=== PATIENT | male | born 1980 | race Caucasian/White ===

== ENCOUNTER 2017-06-01 13:55 | Inpatient (IN) | payer OTHER ==
[2017-06-01 14:07] VITALS: BMI 27.8
--- NOTE | 2017-06-01 15:46 | HP ---
COWS - Scale Resting Pulse: 1= [place] 81-100 Sweatin= Chills/Flushing Restless Observation: 1= Difficult to Sit Still Pupil Size: 2= Moderately Dilated Bone or Joint Aches: 1= Mild Discomfort Runny Nose/ Eye Tearin= Nasal Congestion GI Upset > 30mins: 2= Nausea/Diarrhea Tremor Observation: 2= Slight Tremor Visible Yawning Observation: 1= 1-2x During Session Anxiety or Irritability: 2=Irritable/Anxious Goose Flesh Skin: 3=Piloerection COWS Score: 17 CIWA Score - CIWA Score Nausea/Vomitin Muscle Tremors: 3 Anxiety: 4-Mod. Anxious/Guarded Agitation: 3 Paroxysmal Sweats: 3 Orientation: 3-Disoriented Date>2 days Tacttile Disturbances: 1-Very Mild Itch/Numbness Auditory Disturbances: 0-None Visual Disturbances: 0-None Headache: 0-None Present CIWA-Ar Total Score: 20 Admission ROS BHS - HPI Chief Complaint: Withdrawal sx. Allergies/Adverse Reactions: Allergies Allergy/AdvReac Type Severity Reaction Status Date / Time No Known Allergies Allergy Verified 10/06/14 17:34 History of Present Illness: 37 y/o man with a long hx. of heroin & xanax dependence is admitted for detox. Pt. has been in previous detox, reports 6 months drug free. Exam Limitations: No Limitations - Ebola screening Have you traveled outside of the country in the last 21 days: No (N) Have you had contact with anyone from an Ebola affected area: No Have you been sick,other than usual withdrawal symptoms: No Do you have a fever: No - Review of Systems Constitutional: Diaphoresis EENT: reports: No Symptoms Reported Respiratory: reports: No Symptoms reported Cardiac: reports: No Symptoms Reported GI: reports: Nausea, Abdominal cramping : reports: No Symptoms Reported Musculoskeletal: reports: Back Pain, Joint Pain Integumentary: reports: Sweating Neuro: reports: Headache, Numbness, Tremors Endocrine: reports: No Symptoms Reported Hematology: reports: No Symptoms Reported Psychiatric: reports: No Sypmtoms Reported Other Systems: Reviewed and Negative Patient History - Patient Medical History Hx Anemia: No Hx Asthma: No Hx Chronic Obstructive Pulmonary Disease (COPD): No Hx Cancer: No Hx Cardiac Disorders: No Hx Congestive Heart Failure: No Hx Hypertension: No Hx Hypercholesterolemia: No Hx Pacemaker: No HX Cerebrovascular Accident: No Hx Seizures: No Hx Dementia: No Hx Diabetes: No Hx Gastrointestinal Disorders: No Hx Liver Disease: No Hx Genitourinary Disorders: No Hx Sexually Transmitted Disorders: No Hx Renal Disease (ESRD): No Hx Thyroid Disease: No Hx Human Immunodeficiency Virus (HIV): No Hx Hepatitis C: No Hx Depression: Yes Hx Suicide Attempt: No Hx Bipolar Disorder: No Hx Schizophrenia: No - Patient Surgical History Past Surgical History: Yes Hx Neurologic Surgery: No Hx Cataract Extraction: No Hx Cardiac Surgery: No Hx Lung Surgery: No Hx Breast Surgery: No Hx Breast Biopsy: No Hx Abdominal Surgery: No Hx Appendectomy: No Hx Cholecystectomy: No Hx Genitourinary Surgery: No Hx Section: No Hx Orthopedic Surgery: No Other Surgical History: LASIK EYE SURGERY Anesthesia Reaction: No - PPD History Previous Implant?: Yes Documented Results: Negative w/proof Date: 09/10/14 Results: 0 mm PPD to be Administered?: Yes - Smoking Cessation Smoking history: Current every day smoker Have you smoked in the past 12 months: Yes Aproximately how many cigarettes per day: 20 Cigars Per Day: 0 Hx Chewing Tobacco Use: No Initiated information on smoking cessation: Yes 'Breaking Loose' booklet given: 06/01/17 - Substance & Tx. History Hx Alcohol Use: No Hx Substance Use: Yes Substance Use Type: Heroin, Tranquilizers Hx Substance Use Treatment: Yes (Detox & rehab 2014) - Substances Abused Alprazolam (Xanax) Route: Oral Frequency: Daily Amount used: 4-6mg Age of first use: 35 Date of Last Use: 05/31/17 Heroin Route: Injection Frequency: Daily Amount used: 40-50 bags Age of first use: 23 Date of Last Use: 05/31/17 Family Disease History - Family Disease History Family History: Denies Admission Physical Exam BHS - Vital Signs Vital Signs: Vital Signs - 24 hr 06/01/17 13:58 Temperature 96.9 F L Pulse Rate 84 Respiratory 18 Rate Blood Pressure 126/70 - Physical General Appearance: Yes: Tremorous, Irritable, Sweating, Anxious HEENTM: Yes: Nasal Congestion, Rhinorrhea Respiratory: Yes: Chest Non-Tender, Lungs Clear, Normal Breath Sounds Neck: Yes: Supple Breast: Yes: Breast Exam Deferred Cardiology: Yes: Regular Rhythm, Regular Rate, S1, S2 Abdominal: Yes: Normal Bowel Sounds, Non Tender, Soft Genitourinary: Yes: Within Normal Limits Back: Yes: Within Normal Limits Musculoskeletal: Yes: Within Normal Limits Extremities: Yes: Tremors Neurological: Yes: Fully Oriented Integumentary: Yes: Diaphoresis, Track [place] (redness & induration rt. forearm) Lymphatic: Yes: Within Normal Limits - Diagnostic (1) Opioid dependence with withdrawal Current Visit: Yes Status: Acute (2) Sedative, hypnotic or anxiolytic dependence with withdrawal, uncomplicated Current Visit: Yes Status: Acute (3) Cellulitis of right forearm Current Visit: Yes Status: Acute Cleared for Admission S - Detox or Rehab [facility] Level of Care: Medically Managed Detox Regimen/Protocol: Methadone/Valium S Breath Alcohol Content Breath Alcohol Content: 0 Urine Drug Screen - Results Drug Screen Negative: No Urine Drug Screen Results: OPI-Opiates, OXY-Oxycodone
[2017-06-01] MEDS ORDERED: guaiFENesin/D-METHORPHAN HB 10 ML UNIT-DOSE CUPS PO PRN (15:58)
[2017-06-01] MEDS ORDERED: MENTHOL/PHENOL 1 EACH UD MM PRN (15:58)
[2017-06-01] MEDS ORDERED: ACETAMINOPHEN 325 MG TABLET (FP) PO PRN (15:58)
[2017-06-01] MEDS ORDERED: IBUPROFEN 400 MG TABLET (FP) PO PRN (15:58)
[2017-06-01] MEDS ORDERED: diazePAM 5 MG TABLET PO ONE (15:58)
[2017-06-01] MEDS ORDERED: MAG HYDROX/AL HYDROX/SIMETH 30 ML UNIT-DOSE CUP PO PRN (15:58)
[2017-06-01] MEDS ORDERED: LOPERAMIDE HCL 2 MG CAPSULE PO PRN (15:58)
[2017-06-01] MEDS ORDERED: MAGNESIUM CITRATE 300 ML BOTTLE PO PRN (15:58)
[2017-06-01] MEDS ORDERED: P-EPHED 60MG/TRIPROLIDI 2.5MG TABLET PO PRN (15:58)
[2017-06-01] MEDS ORDERED: NICOTINE POLACRILEX 2 MG GUM BC PRN (15:58)
[2017-06-01] MEDS ORDERED: METHADONE HCL 10 MG TABLET (FOR DETOX USE ONLY) PO ONE ×2 (15:58→23:00)
[2017-06-01] MEDS ORDERED: METHADONE HCL 10 MG TABLET (FOR DETOX USE ONLY) ONE (18:46)
[2017-06-01] MEDS: NICOTINE 21 MG/24 HOURS TOPICAL PATCH TD SCH (18:51)
[2017-06-01] MEDS: AMOX TR/POT CLAV 875MG/125MG TABLETS (FP) PO SCH (18:51)
[2017-06-01] MEDS ORDERED: BACITRACIN 0.9 GM PACKET ONE (20:49)
[2017-06-01] MEDS: THIAMINE HCL 100 MG TABLET (FP) PO SCH (22:12)
[2017-06-01] MEDS: diazePAM 5 MG TABLET PO SCH (22:13)
[2017-06-01] MEDS: BACITRACIN 15 GM TUBE TOPICAL OINTMENT TP SCH (22:13)
[2017-06-01] MEDS: hydrOXYzine PAMOATE 50 MG CAPSULE (FP) PO PRN (22:16)
[2017-06-01] MEDS: MAGNESIUM HYDROX 2400MG/30ML ORAL SUSPENSION 30 ML CUP PO PRN (23:30)
[2017-06-01 23:40] LABS: URINE APPEARANCE CLEAR; URINE BILIRUBIN NEGATIVE (NEGATIVE); URINE BLOOD NEGATIVE (NEGATIVE); URINE COLOR YELLOW; URINE GLUCOSE (UA) NEGATIVE (NEGATIVE); URINE KETONE NEGATIVE (NEGATIVE); URINE LEUK ESTERASE NEGATIVE (NEGATIVE); URINE NITRITE NEGATIVE (NEGATIVE); URINE PROTEIN NEGATIVE (NEGATIVE); URINE UROBILINOGEN NEGATIVE mg/dL (0.2-1.0)
[2017-06-02] MEDS: diazePAM 5 MG TABLET PO PRN ×4 (00:02→20:53)
[2017-06-02] MEDS: diazePAM 5 MG TABLET PO SCH ×3 (07:10→21:54)
[2017-06-02] MEDS: AMOX TR/POT CLAV 875MG/125MG TABLETS (FP) PO SCH ×2 (07:10→16:51)
--- NOTE | 2017-06-02 08:51 | EKG ---
Test Reason : Blood Pressure : / mmHG Vent. Rate : 083 BPM Atrial Rate : 083 BPM P-R Int : 128 ms QRS Dur : 098 ms QT Int : 350 ms P-R-T Axes : 056 079 047 degrees QTc Int : 411 ms NORMAL SINUS RHYTHM NORMAL ECG NO PREVIOUS ECGS AVAILABLE Confirmed by Denis Rose ([id number]) on 06/02/2017 8:50:47 AM Referred By: Wu Rubin Confirmed By:Denis Rose
--- NOTE | 2017-06-02 09:19 | CONSULT ---
[facility] Psychiatric Consult - Data Date of interview: 06/02/17 Admission source: [facility] Identifying data: This is 37 years old male with with no psychiatric hospitalization history intoxicated with: Opioids and Xanax Substance Abuse History: - Smoking Cessation. Smoking history: Current every day smoker. Have you smoked in the past 12 months: Yes. Aproximately how many cigarettes per day: 20. Cigars Per Day: 0. Hx Chewing Tobacco Use: No. Initiated information on smoking cessation: Yes. 'Breaking Loose' booklet given : 06/01/17. - Substance & Tx. History. Hx Alcohol Use: No. Hx Substance Use: Yes. Substance Use Type: Heroin, Tranquilizers. Hx Substance Use Treatment: Yes (Detox & rehab 2014). - Substances Abused. Alprazolam (Xanax). Route: Oral. Frequency: Daily. Amount used: 4-6mg. Age of first use: 35. Date of Last Use: 05/31/17. Heroin. Route: Injection. Frequency: Daily. Amount used: 40-50 bags. Age of first use: 23. Date of Last Use: 05/31/17 Medical History: History of Cellulitis Psychiatric History: Patient reports history of depression and anxiety, reports taking prior to admission: Reneron 30mg po qhs. Gabapentin 300mg po tid Physical/Sexual Abuse/Trauma History: Denies Additional Comment: Reneron 30mg po qhs. Gabapentin 300mg po tid Mental Status Exam - Mental Status Exam Alert and Oriented to: Person Cognitive Function: Fair Patient Appearance: Unkempt Mood: Sad Affect: Flat Patient Behavior: Sedated Speech Pattern: Delayed Voice Loudness: Mildly Soft/Quiet Thought Process: Circumstantial Thought Disorder: Being Controlled Hallucinations: Denies Suicidal Ideation: Denies Homicidal Ideation: Denies Insight/Judgement: Fair Sleep: Difficulty falling asleep Appetite: Fair Muscle strength/Tone: Normal Gait/Station: Normal Additional Comments: Reneron 30mg po qhs. Gabapentin 300mg po tid Psychiatric Findings - Problem List ([place] 1, 2,3) (1) Opioid dependence with withdrawal Current Visit: Yes Status: Acute (2) Sedative, hypnotic or anxiolytic dependence with withdrawal, uncomplicated Current Visit: Yes Status: Acute (3) ADHD (attention deficit hyperactivity disorder) Current Visit: No Status: Acute (4) Anxiety and depression Current Visit: No Status: Acute (5) Anxiety disorder Current Visit: No Status: Acute (6) Benzodiazepine dependence Current Visit: No Status: Acute (7) Cocaine dependence Current Visit: No Status: Acute (8) Heroin dependence Current Visit: No Status: Acute (9) Mood disorder Current Visit: No Status: Acute (10) Nicotine dependence Current Visit: No Status: Acute (11) Opioid dependence Current Visit: No Status: Acute - Initial Treatment Plan Initial Treatment Plan: Reneron 30mg po qhs. Gabapentin 300mg po tid
[2017-06-02] MEDS: PRENATAL VITAMINS W/ FOLIC ACID TABLET (FP) PO SCH (09:35)
[2017-06-02] MEDS: NICOTINE 21 MG/24 HOURS TOPICAL PATCH TD SCH (09:36)
[2017-06-02] MEDS: MAGNESIUM HYDROX 2400MG/30ML ORAL SUSPENSION 30 ML CUP PO PRN (09:37)
[2017-06-02] MEDS ORDERED: METHADONE HCL 10 MG TABLET (FOR DETOX USE ONLY) PO SCH (10:00)
[2017-06-02 10:17] LABS: HEMATOCRIT 37.7 % (35.4-49); HEMOGLOBIN 12.3 GM/dL (11.7-16.9); MCH 27.2 pg (25.7-33.7); MCHC 32.7 g/dl (32.0-35.9); MEAN CELL VOLUME 83.3 fl (80-96); MEAN PLT VOLUME 8.4 fl (7.5-11.1); PLATELET COUNT 275 K/MM3 (134-434); RBC 4.52 M/mm3 (4.00-5.60); RDW 13.9 % (11.9-15.9); WHITE BLOOD COUNT 4.9 K/mm3 (4.0-10.0)
[2017-06-02 10:30] LABS: ALBUMIN 3.4 g/dl (3.4-5.0); ANION GAP 7 (8-16); BLOOD UREA NITROGEN 14 mg/dL (7-18); CALCIUM 8.9 mg/dL (8.5-10.1); CHLORIDE 102 mmol/L (98-107); CO2 30 mmol/L (21-32); GLUCOSE,RANDOM 104 mg/dL (74-106); POTASSIUM 4.4 mmol/L (3.5-5.1); SODIUM 139 mmol/L (136-145)
[2017-06-02 10:33] LABS: ALK PHOS 116 U/L (45-117); BILIRUBIN,TOTAL 0.4 mg/dL (0.2-1.0); CREATININE 0.8 mg/dL (0.7-1.3); SGOT/AST 29 U/L (15-37); SGPT/ALT 95 U/L (12-78); TOT PROT 6.9 g/dl (6.4-8.2)
--- NOTE | 2017-06-02 13:32 | PN ---
S CIWA - CIWA Score Nausea/Vomitin Muscle Tremors: 4-Moderate,w/Arms Extend Anxiety: 3 Agitation: 3 Paroxysmal Sweats: 3 Orientation: 0-Oriented Tacttile Disturbances: 0-None Auditory Disturbances: 0-None Visual Disturbances: 0-None Headache: 0-None Present CIWA-Ar Total Score: 15 BHS COWS - Scale Resting Pulse: 0= DC 80 or Below Sweatin=Flushed/Facial Moisture Restless Observation: 3= Extraneous Movement Pupil Size: 0= Normal to Room Light Bone or Joint Aches: 1= Mild Discomfort Runny Nose/ Eye Tearin= Nasal Congestion GI Upset > 30mins: 2= Nausea/Diarrhea Tremor Observation of Outstretched Hands: 2= Slight Tremor Visible Yawning Observation: 1= 1-2x During Session Anxiety or Irritability: 2=Irritable/Anxious Goose Flesh Skin: 0=Smooth Skin COWS Score: 14 S Progress Note (SOAP) Subjective: Tremors, sleep disturbance diarrhea Objective: 06/02/17 13:35 no signs of acute distress Vital Signs Temperature 97.1 F L 06/02/17 09:23 Pulse Rate 80 06/02/17 09:23 Respiratory Rate 16 06/02/17 09:23 Blood Pressure 126/74 06/02/17 09:23 O2 Sat by Pulse Oximetry (%) Laboratory Last Values WBC 4.9 K/mm3 (4.0-10.0) 06/02/17 07:00 RBC 4.52 M/mm3 (4.00-5.60) 06/02/17 07:00 Hgb 12.3 GM/dL (11.7-16.9) 06/02/17 07:00 Hct 37.7 % (35.4-49) 06/02/17 07:00 MCV 83.3 fl (80-96) 06/02/17 07:00 MCH 27.2 pg (25.7-33.7) 06/02/17 07:00 MCHC 32.7 g/dl (32.0-35.9) 06/02/17 07:00 RDW 13.9 % (11.9-15.9) 06/02/17 07:00 Plt Count 275 K/MM3 (134-434) 06/02/17 07:00 MPV 8.4 fl (7.5-11.1) 06/02/17 07:00 Sodium 139 mmol/L (136-145) 06/02/17 07:00 Potassium 4.4 mmol/L (3.5-5.1) 06/02/17 07:00 Chloride 102 mmol/L (98-107) 06/02/17 07:00 Carbon Dioxide 30 mmol/L (21-32) 06/02/17 07:00 Anion Gap 7 (8-16) L 06/02/17 07:00 BUN 14 mg/dL (7-18) 06/02/17 07:00 Creatinine 0.8 mg/dL (0.7-1.3) D 06/02/17 07:00 Creat Clearance w eGFR > 60 (>60) 06/02/17 07:00 Random Glucose 104 mg/dL (74-106) 06/02/17 07:00 Calcium 8.9 mg/dL (8.5-10.1) 06/02/17 07:00 Total Bilirubin 0.4 mg/dL (0.2-1.0) 06/02/17 07:00 AST 29 U/L (15-37) D 06/02/17 07:00 ALT 95 U/L (12-78) H D 06/02/17 07:00 Alkaline Phosphatase 116 U/L (45-117) D 06/02/17 07:00 Total Protein 6.9 g/dl (6.4-8.2) 06/02/17 07:00 Albumin 3.4 g/dl (3.4-5.0) D 06/02/17 07:00 Urine Color Yellow 06/01/17 23:20 Urine Appearance Clear 06/01/17 23:20 Urine pH 6.0 (5.0-8.0) 06/01/17 23:20 Ur Specific [place] 1.020 (1.001-1.035) 06/01/17 23:20 Urine Protein Negative (NEGATIVE) 06/01/17 23:20 Urine Glucose (UA) Negative (NEGATIVE) 06/01/17 23:20 Urine Ketones Negative (NEGATIVE) 06/01/17 23:20 Urine Blood Negative (NEGATIVE) 06/01/17 23:20 Urine Nitrite Negative (NEGATIVE) 06/01/17 23:20 Urine Bilirubin Negative (NEGATIVE) 06/01/17 23:20 Urine Urobilinogen Negative mg/dL (0.2-1.0) 06/01/17 23:20 Ur Leukocyte Esterase Negative (NEGATIVE) 06/01/17 23:20 RPR Titer Nonreactive (NONREACTIVE) 06/02/17 07:00 HIV 1&2 Antibody Screen Negative 06/02/17 07:00 HIV P24 Antigen Negative 06/02/17 07:00 labs noted Assessment: 06/02/17 13:36 withdrawal sx Plan: continue detox
[2017-06-02] MEDS: GABAPENTIN 300 MG CAPSULE (FP) PO SCH ×2 (13:42→21:54)
[2017-06-02] MEDS: BACITRACIN 15 GM TUBE TOPICAL OINTMENT TP SCH ×2 (13:47→21:55)
[2017-06-02] MEDS: hydrOXYzine PAMOATE 50 MG CAPSULE (FP) PO PRN (20:52)
[2017-06-02] MEDS ORDERED: cloNIDine HCL 0.1 MG TABLET PO ONE (21:45)
[2017-06-02] MEDS ORDERED: METHOCARBAMOL 500 MG TABLET PO ONE (21:45)
[2017-06-02] MEDS: THIAMINE HCL 100 MG TABLET (FP) PO SCH (21:54)
[2017-06-02] MEDS ORDERED: MIRTAZAPINE 30 MG TABLET (FP) PO SCH (22:00)
[2017-06-03] MEDS: diazePAM 5 MG TABLET PO PRN ×4 (00:33→17:27)
[2017-06-03] MEDS: hydrOXYzine PAMOATE 50 MG CAPSULE (FP) PO PRN ×3 (03:23→17:27)
[2017-06-03] MEDS: GABAPENTIN 300 MG CAPSULE (FP) PO SCH ×2 (05:20→13:28)
[2017-06-03] MEDS: AMOX TR/POT CLAV 875MG/125MG TABLETS (FP) PO SCH ×2 (08:25→17:27)
[2017-06-03] MEDS: PRENATAL VITAMINS W/ FOLIC ACID TABLET (FP) PO SCH (11:11)
[2017-06-03] MEDS: diazePAM 5 MG TABLET PO SCH ×2 (11:11→11:26)
[2017-06-03] MEDS: BACITRACIN 15 GM TUBE TOPICAL OINTMENT TP SCH (11:11)
[2017-06-03] MEDS: NICOTINE 21 MG/24 HOURS TOPICAL PATCH TD SCH ×2 (11:11→12:30)
[2017-06-03] MEDS: METHADONE HCL 5 MG TABLET (FOR DETOX USE ONLY) PO SCH ×2 (11:11→11:26)
--- NOTE | 2017-06-03 13:37 | PN ---
BHS COWS - Scale Resting Pulse: 0= HI 80 or Below Sweatin= Chills/Flushing Restless Observation: 3= Extraneous Movement Pupil Size: 2= Moderately Dilated Bone or Joint Aches: 1= Mild Discomfort Runny Nose/ Eye Tearin= Runny Nose/Eyes GI Upset > 30mins: 1= Stomach Cramp Tremor Observation of Outstretched Hands: 2= Slight Tremor Visible Yawning Observation: 0= None Anxiety or Irritability: 4=Extreme Anxiety Goose Flesh Skin: 0=Smooth Skin COWS Score: 16 S Progress Note (SOAP) Objective: 06/03/17 13:36 Laboratory Tests 06/01/17 06/02/17 06/02/17 23:20 07:00 07:00 WBC 4.9 RBC 4.52 Hgb 12.3 Hct 37.7 MCV 83.3 MCH 27.2 MCHC 32.7 RDW 13.9 Plt Count 275 MPV 8.4 Sodium 139 Potassium 4.4 Chloride 102 Carbon Dioxide 30 Anion Gap 7 L BUN 14 Creatinine 0.8 D Creat Clearance w eGFR > 60 Random Glucose 104 Calcium 8.9 Total Bilirubin 0.4 AST 29 D ALT 95 H D Alkaline Phosphatase 116 D Total Protein 6.9 Albumin 3.4 D Urine Color Yellow Urine Appearance Clear Urine pH 6.0 Ur Specific [place] 1.020 Urine Protein Negative Urine Glucose (UA) Negative Urine Ketones Negative Urine Blood Negative Urine Nitrite Negative Urine Bilirubin Negative Urine Urobilinogen Negative Ur Leukocyte Esterase Negative RPR Titer HIV 1&2 Antibody Screen HIV P24 Antigen 06/02/17 06/02/17 07:00 07:00 WBC RBC Hgb Hct MCV MCH MCHC RDW Plt Count MPV Sodium Potassium Chloride Carbon Dioxide Anion Gap BUN Creatinine Creat Clearance w eGFR Random Glucose Calcium Total Bilirubin AST ALT Alkaline Phosphatase Total Protein Albumin Urine Color Urine Appearance Urine pH Ur Specific [place] Urine Protein Urine Glucose (UA) Urine Ketones Urine Blood Urine Nitrite Urine Bilirubin Urine Urobilinogen Ur Leukocyte Esterase RPR Titer Nonreactive HIV 1&2 Antibody Screen Negative HIV P24 Antigen Negative Vital Signs - 24 hr 06/02/17 06/02/17 06/02/17 14:38 18:32 23:06 Temperature 97.7 F 98.2 F 98.2 F Pulse Rate 84 81 83 Respiratory 18 18 20 Rate Blood Pressure 120/79 115/65 134/70 06/03/17 06:00 Temperature 97.2 F L Pulse Rate 76 Respiratory 18 Rate Blood Pressure 109/63 Assessment: 06/03/17 13:37 severe withdrawal Plan: cont DETOX PROTOCOL PSYCH CS FOR ANXIETY
[2017-06-03 17:59] VITALS: BP 135/68; PULSE 76; TEMP 98.2
--- NOTE | 2017-06-03 21:23 | DS ---
[facility] Detox Discharge Summary Admission Date: 06/01/17 Discharge Date: 06/03/17 - History Present History: Opioid Dependence, Sedative Dependence Additional Comments: patient insists to leave the detox unit refuses to wait face to face with the provider - Physical Exam Results Vital Signs: Vital Signs Temperature 98.2 F 06/03/17 17:59 Pulse Rate 76 06/03/17 17:59 Respiratory Rate 18 06/03/17 17:59 Blood Pressure 135/68 06/03/17 17:59 O2 Sat by Pulse Oximetry (%) Pertinent Admission Physical Exam Findings: withdrawal sx Vital Signs Temperature 98.2 F 06/03/17 17:59 Pulse Rate 76 06/03/17 17:59 Respiratory Rate 18 06/03/17 17:59 Blood Pressure 135/68 06/03/17 17:59 O2 Sat by Pulse Oximetry (%) Laboratory Last Values WBC 4.9 K/mm3 (4.0-10.0) 06/02/17 07:00 RBC 4.52 M/mm3 (4.00-5.60) 06/02/17 07:00 Hgb 12.3 GM/dL (11.7-16.9) 06/02/17 07:00 Hct 37.7 % (35.4-49) 06/02/17 07:00 MCV 83.3 fl (80-96) 06/02/17 07:00 MCH 27.2 pg (25.7-33.7) 06/02/17 07:00 MCHC 32.7 g/dl (32.0-35.9) 06/02/17 07:00 RDW 13.9 % (11.9-15.9) 06/02/17 07:00 Plt Count 275 K/MM3 (134-434) 06/02/17 07:00 MPV 8.4 fl (7.5-11.1) 06/02/17 07:00 Sodium 139 mmol/L (136-145) 06/02/17 07:00 Potassium 4.4 mmol/L (3.5-5.1) 06/02/17 07:00 Chloride 102 mmol/L (98-107) 06/02/17 07:00 Carbon Dioxide 30 mmol/L (21-32) 06/02/17 07:00 Anion Gap 7 (8-16) L 06/02/17 07:00 BUN 14 mg/dL (7-18) 06/02/17 07:00 Creatinine 0.8 mg/dL (0.7-1.3) D 06/02/17 07:00 Creat Clearance w eGFR > 60 (>60) 06/02/17 07:00 Random Glucose 104 mg/dL (74-106) 06/02/17 07:00 Calcium 8.9 mg/dL (8.5-10.1) 06/02/17 07:00 Total Bilirubin 0.4 mg/dL (0.2-1.0) 06/02/17 07:00 AST 29 U/L (15-37) D 06/02/17 07:00 ALT 95 U/L (12-78) H D 06/02/17 07:00 Alkaline Phosphatase 116 U/L (45-117) D 06/02/17 07:00 Total Protein 6.9 g/dl (6.4-8.2) 06/02/17 07:00 Albumin 3.4 g/dl (3.4-5.0) D 06/02/17 07:00 Urine Color Yellow 06/01/17 23:20 Urine Appearance Clear 06/01/17 23:20 Urine pH 6.0 (5.0-8.0) 06/01/17 23:20 Ur Specific [place] 1.020 (1.001-1.035) 06/01/17 23:20 Urine Protein Negative (NEGATIVE) 06/01/17 23:20 Urine Glucose (UA) Negative (NEGATIVE) 06/01/17 23:20 Urine Ketones Negative (NEGATIVE) 06/01/17 23:20 Urine Blood Negative (NEGATIVE) 06/01/17 23:20 Urine Nitrite Negative (NEGATIVE) 06/01/17 23:20 Urine Bilirubin Negative (NEGATIVE) 06/01/17 23:20 Urine Urobilinogen Negative mg/dL (0.2-1.0) 06/01/17 23:20 Ur Leukocyte Esterase Negative (NEGATIVE) 06/01/17 23:20 RPR Titer Nonreactive (NONREACTIVE) 06/02/17 07:00 HIV 1&2 Antibody Screen Negative 06/02/17 07:00 HIV P24 Antigen Negative 06/02/17 07:00 lab noted - Treatment Hospital Course: Detox Protocol Followed, Responded well - Medication Discharge Medications: Ambulatory Orders Amphet Asp/Amphet/D-Amphet [Adderall 20 mg Tablet] 20 mg PO DAILY 10/06/14 Gabapentin [Neurontin -] 300 mg PO TID #90 capsule 06/02/17 Mirtazapine [Remeron -] 30 mg PO HS #30 tablet 06/02/17 - Diagnosis (1) Opioid dependence with withdrawal Current Visit: Yes Status: Acute (2) Sedative, hypnotic or anxiolytic dependence with withdrawal, uncomplicated Current Visit: Yes Status: Acute - AMA Did Patient Leave Against Medical Advice: Yes
[2017-06-05] MEDS ORDERED: diazePAM 5 MG TABLET PO SCH (10:00)
[2017-06-05] MEDS ORDERED: METHADONE HCL 10 MG TABLET (FOR DETOX USE ONLY) PO SCH (10:00)
[2017-06-06] MEDS ORDERED: METHADONE HCL 5 MG TABLET (FOR DETOX USE ONLY) PO SCH (06:00)
== END 2017-06-03 20:25 | disposition left against medical advice (07) | DRG 770 ==
LOC: YASAS 13:55 → Y6N 16:53
PROVIDERS: ADMIT Internal Medicine; ATTEND Internal Medicine
PROC: HZ2ZZZZ Detoxification Services for Substance Abuse Treatment (ICD-10-PCS; principal; 2017-06-01)
DX: F11.23 Opioid dependence with withdrawal (principal); F13.230 Sedative, hypnotic or anxiolytic dependence with withdrawal, uncomplicated; F17.210 Nicotine dependence, cigarettes, uncomplicated; F90.9 Attention-deficit hyperactivity disorder, unspecified type; F41.8 Other specified anxiety disorders; F41.9 Anxiety disorder, unspecified; F39 Unspecified mood [affective] disorder; L03.113 Cellulitis of right upper limb
CPT/HCPCS: 36415; 80053; 81003; 85027; 86593; 87389; 93005; 93010; J0735

== ENCOUNTER 2019-06-02 15:50 | Inpatient (IN) | payer OTHER ==
[2019-06-02 16:49] VITALS: BMI 25.1
--- NOTE | 2019-06-02 18:32 | HP ---
CIWA Score Nausea/Vomitin (vomiting x 1) Muscle Tremors: 4-Moderate,w/Arms Extend Anxiety: 3 Agitation: 4-Moderately Restless Paroxysmal Sweats: 2 Orientation: 0-Oriented Tacttile Disturbances: 0-None Auditory Disturbances: 0-None Visual Disturbances: 0-None Headache: 2-Mild CIWA-Ar Total Score: 17 - Admission Criteria OASAS Guidelines: Admission for Medically Managed Detox: Requires at least one of the followin. CIWA greater than 12 2. Seizures within the past 24 hours 3. Delirium tremens within the past 24 hours 4. Hallucinations within the past 24 hours 5. Acute intervention needed for co occurring medical disorder 6. Acute intervention needed for co occurring psychiatric disorder 7. Severe withdrawal that cannot be handled at a lower level of care (continued vomiting, continued diarrhea, abnormal vital signs) requiring intravenous medication and/or fluids 8. Admitting History and Physical - Smoking History Smoking history: Current every day smoker Have you smoked in the past 12 months: Yes Aproximately how many cigarettes per day: 20 - Alcohol/Substance Use Hx Alcohol Use: No Admission ROS [facility] Chief Complaint: Benzodiazepine withdrawal symptoms Allergies/Adverse Reactions: Allergies Allergy/AdvReac Type Severity Reaction Status Date / Time No Known Allergies Allergy Verified 06/02/19 16:25 History of Present Illness: 39 years old male with 16 years of benzo. dependence is seeking admission to detox. Patient's last detox was for the period 06/01/2017 - 06/03/2017. He reports insignificant period of sobriety. He reports medical history of shingles and Psych. history of ADHD, Anxiety and Insomnia. He denies suicidal ideation, seizures or blackouts. Patient is on Buprenorphine - naloxone 8-2mg sl film daily. Confidential Drug Utilization Report Search Terms: ar bui, 1980 Search Date: 06/02/2019 06:25:14 PM The Drug Utilization Report below displays all of the controlled substance prescriptions, if any, that your patient has filled in the last twelve months. The information displayed on this report is compiled from pharmacy submissions to the Department, and accurately reflects the information as submitted by the pharmacies. You have not added a RYNE number. Keeping your RYNE number(s) up to date on the My RYNE Numbers page will enable the separation of your prescriptions from others ' in the search results. Others' Prescriptions Patient Name: Ar Bui Date: 1980 Address: [address] [place] [address] Sex: Male Rx Written Rx Dispensed Drug Quantity Days Supply Prescriber Name 05/16/2019 05/26/2019 dextroamp-amphetamin 10 mg tab 60 30 Bebo Alvarez MD 05/16/2019 05/20/2019 buprenorphine-naloxone 8-2 mg sl film 15 14 Bebo Alvarez MD 05/16/2019 05/18/2019 zolpidem tartrate 5 mg tablet 14 14 Bebo Alvarez MD 04/27/2019 05/06/2019 buprenorphine-naloxone 8-2 mg sl film 15 14 Bebo Alvarez MD 04/04/2019 04/27/2019 dextroamp-amphetamin 10 mg tab 60 30 Bebo Alvarez MD 04/18/2019 04/25/2019 zolpidem tartrate 5 mg tablet 14 14 Bebo Alvarez MD 04/18/2019 04/20/2019 buprenorphine-naloxone 8-2 mg sl film 15 14 Bebo Alvarez MD 04/11/2019 04/14/2019 buprenorphine-naloxone 8-2 mg sl film 7 7 Bebo Alvarez MD 04/04/2019 04/11/2019 zolpidem tartrate 5 mg tablet 14 14 Bebo Alvarez MD 04/04/2019 04/07/2019 buprenorphine-naloxone 8-2 mg sl film 7 7 Bebo Alvarez MD 03/28/2019 03/31/2019 buprenorphine-naloxone 8-2 mg sl film 7 7 Bebo Alvarez MD 03/28/2019 03/29/2019 dextroamp-amphetamin 10 mg tab 60 30 Bebo Alvarez MD 03/28/2019 03/29/2019 zolpidem tartrate 5 mg tablet 14 14 Bebo Alvarez MD 03/16/2019 03/17/2019 buprenorphine-naloxone 8-2 mg sl film 14 14 Bebo Alvarez MD 03/14/2019 03/15/2019 zolpidem tartrate 5 mg tablet 14 14 Bebo Alvarez MD 02/28/2019 03/02/2019 dextroamp-amphetamin 10 mg tab 60 30 Bebo Alvarez MD 02/28/2019 02/28/2019 buprenorphine-naloxone 8-2 mg sl film 14 14 Bebo Alvarez MD 02/28/2019 02/28/2019 zolpidem tartrate 5 mg tablet 14 14 Bebo Alvarez MD 02/14/2019 02/14/2019 zolpidem tartrate 5 mg tablet 14 14 Bebo Alvarez MD 02/14/2019 02/14/2019 buprenorphine-naloxone 8-2 mg sl film 14 14 Bebo Alvarez MD 01/31/2019 02/01/2019 dextroamp-amphetamin 10 mg tab 60 30 Bebo Alvarez MD 01/31/2019 01/31/2019 buprenorphine-naloxone 8-2 mg sl film 14 14 Bebo Alvarez MD 01/31/2019 01/31/2019 zolpidem tartrate 5 mg tablet 14 14 Bebo Alvarez MD 01/18/2019 01/18/2019 zolpidem tartrate 5 mg tablet 14 14 Bebo Alvarez MD 01/18/2019 01/18/2019 buprenorphine-naloxone 8-2 mg sl film 14 14 Bebo Alvarez MD 01/08/2019 01/10/2019 buprenorphine-naloxone 8-2 mg sl film 3 3 Bebo Alvarez MD 01/08/2019 01/08/2019 buprenorphine-naloxone 8-2 mg sl film 1 1 Bebo Alvarez MD 12/27/2018 01/05/2019 dextroamp-amphetamin 10 mg tab 60 30 Bebo Alvarez MD 12/27/2018 12/27/2018 buprenorphine-naloxone 8-2 mg sl film 15 15 Bebo Alvarez MD 12/27/2018 12/27/2018 zolpidem tartrate 5 mg tablet 14 14 Bebo Alvarez MD 12/13/2018 12/14/2018 zolpidem tartrate 5 mg tablet 14 14 Bebo Alvarez MD 12/13/2018 12/13/2018 buprenorphine-naloxone 8-2 mg sl film 15 15 Bebo Alvarez MD 12/06/2018 12/07/2018 buprenorphine-naloxone 8-2 mg sl film 7 7 Bebo Alvarez MD 12/06/2018 12/07/2018 zolpidem tartrate 5 mg tablet 10 10 Bebo Alvarez MD 12/06/2018 12/07/2018 dextroamp-amphetamin 10 mg tab 60 30 Bebo Alvarez MD 10/27/2018 11/03/2018 methylphenidate 10 mg tablet 60 30 Bebo Alvarez MD 10/30/2018 10/31/2018 dextroamp-amphetamin 20 mg tab 30 30 Bebo Alvarez MD 10/27/2018 10/28/2018 zolpidem tartrate 5 mg tablet 10 10 Bebo Alvarez MD 10/27/2018 10/27/2018 buprenorphine-naloxone 8-2 mg sl film 7 7 Bebo Alvarez MD 10/11/2018 10/11/2018 buprenorphine-naloxone 8-2 mg sl film 16 16 Bebo Alvarez MD 10/11/2018 10/11/2018 zolpidem tartrate 5 mg tablet 10 10 Bebo Alvarez MD 09/27/2018 10/05/2018 methylphenidate 10 mg tablet 60 30 Bebo Alvarez MD 09/27/2018 09/27/2018 buprenorphine-naloxone 8-2 mg sl film 14 14 Bebo Alvarez MD 09/27/2018 09/27/2018 zolpidem tartrate 5 mg tablet 10 10 Bebo Alvarez MD 09/06/2018 09/06/2018 methylphenidate 10 mg tablet 60 30 Bebo Alvarez MD 09/06/2018 09/06/2018 buprenorphine-naloxone 8-2 mg sl film 14 14 Bebo Alvarez MD 09/06/2018 09/06/2018 zolpidem tartrate 5 mg tablet 10 10 Bebo Alvarez MD 08/18/2018 08/18/2018 buprenorphine-naloxone 8-2 mg sl film 14 14 Bebo Alvarez MD 08/18/2018 08/18/2018 zolpidem tartrate 5 mg tablet 5 5 Bebo Alvarez MD 07/30/2018 08/10/2018 dextroamp-amphetamin 20 mg tab 30 30 Bebo Alvarez MD 08/05/2018 08/05/2018 buprenorphine-naloxone 8-2 mg sl tablet 14 14 Bebo Alvarez MD 08/05/2018 08/05/2018 zolpidem tartrate 5 mg tablet 10 10 Bebo Alvarez MD 07/30/2018 08/01/2018 dextroamp-amphetamin 10 mg tab 60 30 Bebo Alvarez MD 07/30/2018 07/30/2018 buprenorphine-naloxone 8-2 mg sl tablet 2 2 Bebo Alvarez MD 07/19/2018 07/19/2018 zolpidem tartrate 5 mg tablet 10 10 Bebo Alvarez MD 07/19/2018 07/19/2018 buprenorphine-naloxone 8-2 mg sl film 14 14 Bebo Alvarez MD 07/05/2018 07/11/2018 dextroamp-amphetamin 20 mg tab 30 30 Bebo Alvarez MD 07/05/2018 07/06/2018 suboxone 8 mg-2 mg sl film 1 1 Bebo Alvarez MD 07/06/2018 07/06/2018 buprenorphine-naloxone 8-2 mg sl film 14 14 Bebo Alvarez MD 07/05/2018 07/05/2018 zolpidem tartrate 5 mg tablet 10 10 Bebo Alvarez MD 06/21/2018 06/21/2018 suboxone 8 mg-2 mg sl film 14 14 Bebo Alvarez MD 06/21/2018 06/21/2018 zolpidem tartrate 5 mg tablet 10 10 Bebo Alvarez MD 06/07/2018 06/13/2018 dextroamp-amphetamin 20 mg tab 30 30 Bebo Alvarez MD 06/07/2018 06/07/2018 suboxone 8 mg-2 mg sl film 14 14 Bebo Alvarez MD 06/07/2018 06/07/2018 zolpidem tartrate 5 mg tablet 10 10 Bebo Alvarez MD * - Drugs marked with an asterisk are compound drugs. If the compound drug is made up of more than one controlled substance, then each controlled substance will be a separate row in the table. Exam Limitations: No Limitations - Ebola screening Have you traveled outside of the country in the last 21 days: No Have you had contact with anyone from an Ebola affected area: No - Review of Systems Constitutional: Chills, Malaise, Night Sweats EENT: reports: No Symptoms Reported Respiratory: reports: No Symptoms reported Cardiac: reports: No Symptoms Reported GI: reports: Nausea, Poor Appetite, Poor Fluid Intake, Vomiting, Abdominal cramping : reports: No Symptoms Reported Musculoskeletal: reports: Joint Pain Integumentary: reports: Dryness, Flushing, Other (resytless leg syndrome) Neuro: reports: Tremors Endocrine: reports: No Symptoms Reported Hematology: reports: No Symptoms Reported Psychiatric: reports: Mood/Affect Appropiate, Anxious Other Systems: Reviewed and Negative Patient History - Patient Medical History Hx Anemia: No Hx Asthma: No Hx Chronic Obstructive Pulmonary Disease (COPD): No Hx Cancer: No Hx Cardiac Disorders: No Hx Congestive Heart Failure: No Hx Hypertension: No Hx Hypercholesterolemia: No Hx Pacemaker: No HX Cerebrovascular Accident: No Hx Seizures: No Hx Dementia: No Hx Diabetes: No Hx Gastrointestinal Disorders: No Hx Liver Disease: No Hx Genitourinary Disorders: No Hx Sexually Transmitted Disorders: No Hx Renal Disease (ESRD): No Hx Thyroid Disease: No Hx Human Immunodeficiency Virus (HIV): No (Negative 2019) Hx Hepatitis C: No Hx Depression: No Hx Suicide Attempt: No (Denies suicidal ideation at this time) Hx Bipolar Disorder: No Hx Schizophrenia: No - Patient Surgical History Past Surgical History: Yes Hx Neurologic Surgery: No Hx Cataract Extraction: No Hx Cardiac Surgery: No Hx Lung Surgery: No Hx Breast Surgery: No Hx Breast Biopsy: No Hx Abdominal Surgery: No Hx Appendectomy: No Hx Cholecystectomy: No Hx Genitourinary Surgery: No Hx Section: No Hx Orthopedic Surgery: No Other Surgical History: LASIK EYE SURGERY Anesthesia Reaction: No - PPD History Previous Implant?: Yes Documented Results: Negative w/proof Implanted On Prior [facility] Admission?: Yes Date: 06/03/17 Results: 0 mm PPD to be Administered?: Yes - Reproductive History Patient is a Female of Child Bearing Age (11 -55 yrs old): No (male) - Smoking Cessation Smoking history: Current every day smoker Have you smoked in the past 12 months: Yes Aproximately how many cigarettes per day: 20 Cigars Per Day: 0 Hx Chewing Tobacco Use: No Initiated information on smoking cessation: Yes 'Breaking Loose' booklet given: 06/02/19 - Substance & Tx. History Hx Alcohol Use: Yes Hx Substance Use: Yes Substance Use Type: Alcohol, Marijuana, Prescribed Hx Substance Use Treatment: Yes ([facility]) - Substances abused Alprazolam (Xanax) Substance route: Oral Frequency: Daily Amount used: 6 to 8 mg Age of first use: 23 Date of last use: 06/01/19 Benzodiazepine (Klonopin) Substance route: Oral Frequency: Daily Amount used: 2 to 4 mg Age of first use: 23 Date of last use: 05/27/19 Alcohol Substance route: Oral Frequency: 1-2 times per week Amount used: fifth of vodka Age of first use: 30 Date of last use: 06/01/19 Admission Physical Exam [facility] - Vital Signs Vital Signs: Vital Signs - 24 hr 06/02/19 16:39 Temperature 97.6 F Pulse Rate 82 Respiratory 20 Rate Blood Pressure 130/74 - Physical General Appearance: Yes: Moderate Distress, Tremorous, Anxious HEENTM: Yes: Within Normal Limits Respiratory: Yes: Lungs Clear, Normal Breath Sounds, No Respiratory Distress Neck: Yes: Within Normal Limits Breast: Yes: Breast Exam Deferred Cardiology: Yes: Regular Rhythm, Regular Rate Abdominal: Yes: Normal Bowel Sounds, Soft Genitourinary: Yes: Within Normal Limits Back: Yes: Normal Inspection Musculoskeletal: Yes: Within Normal Limits Extremities: Yes: Tremors Neurological: Yes: Alert, Normal Mood/Affect Integumentary: Yes: Pale Lymphatic: Yes: Within Normal Limits - Diagnostic (1) Alcohol dependence Current Visit: Yes Status: Chronic Qualifiers: Complication of substance-induced condition: uncomplicated (2) Anxiety and depression Current Visit: Yes Status: Chronic (3) Nicotine dependence Current Visit: Yes Status: Acute Qualifiers: Nicotine product type: cigarettes Substance use status: in withdrawal Qualified Code(s): F17.213 - Nicotine dependence, cigarettes, with withdrawal (4) Sedative, hypnotic or anxiolytic dependence with withdrawal, uncomplicated Current Visit: Yes Status: Acute (5) Shingles Current Visit: Yes Status: Resolved Cleared for Admission [facility] - Detox or Rehab [facility] Level of Care: Medically Managed Detox Regimen/Protocol: Valium Claeared for Rehab Admission: No Breathalyzer - Breathalyzer Breathalyzer: 0 Urine Drug Screen - Test Device Lot number: [id number] Expiration date: 12/09/20 - Control Is test valid?: Yes - Results Drug screen NEGATIVE: No Urine drug screen results: THC-Marijuana, AMP-Amphetamines, BZO-Benzodiazepines , BUP-Suboxone Inpatient Rehab Admission - Rehab Decision to Admit Inpatient rehab admission?: No
[2019-06-02] MEDS ORDERED: IBUPROFEN 400 MG TABLET (FP) PO PRN (18:53)
[2019-06-02] MEDS ORDERED: MELATONIN 5 MG TABLETS PO PRN (18:53)
[2019-06-02] MEDS ORDERED: MAG HYDROX/AL HYDROX/SIMETH 30 ML UNIT-DOSE CUP PO PRN (18:53)
[2019-06-02] MEDS ORDERED: ACETAMINOPHEN 325 MG TABLET (FP) PO PRN ×2 (18:53)
[2019-06-02] MEDS ORDERED: hydrOXYzine PAMOATE 25 MG CAPSULE (FP) PO PRN (18:53)
[2019-06-02] MEDS ORDERED: MAGNESIUM CITRATE 300 ML BOTTLE PO PRN (18:53)
[2019-06-02] MEDS ORDERED: BISMUTH SUBSALICYLATE 524 MG/30 ML UD PO PRN (18:53)
[2019-06-02] MEDS ORDERED: NICOTINE POLACRILEX 2 MG GUM BUC PRN (18:53)
[2019-06-02] MEDS ORDERED: METHOCARBAMOL 500 MG TABLET PO PRN (18:53)
[2019-06-02] MEDS ORDERED: MENTHOL/PHENOL 1 EACH UD MM PRN (18:53)
[2019-06-02] MEDS: diazePAM 5 MG TABLET PO PRN (20:07)
[2019-06-02] MEDS: THIAMINE HCL 100 MG TABLET (FP) PO SCH (22:08)
[2019-06-02] MEDS: diazePAM 5 MG TABLET PO SCH (22:08)
[2019-06-03] MEDS: diazePAM 5 MG TABLET PO SCH ×3 (06:37→22:06)
--- NOTE | 2019-06-03 09:20 | PN ---
[facility] CIWA - CIWA Score Nausea/Vomitin-Mild Nausea/No Vomiting Muscle Tremors: 3
--- NOTE | 2019-06-03 09:54 | CONSULT ---
[facility] Psychiatric Consult - Data Date of interview: 06/03/19 Admission source: [facility] Identifying data: Patient is a 39 year old single male, without children, currently unemployed (works in [employer]), domiciled, and is not currently receiving financial assistance. This is one of multiple admissions for patient. Patient admitted to for benzodiazepine dependence. Substance Abuse History: moking Cessation. Smoking history: Current every day smoker. Have you smoked in the past 12 months: Yes. Aproximately how many cigarettes per day: 20. Cigars Per Day: 0. Hx Chewing Tobacco Use: No. Initiated information on smoking cessation: Yes. 'Breaking Loose' booklet given : 06/02/19. - Substance & Tx. History. Hx Alcohol Use: Yes. Hx Substance Use : Yes. Substance Use Type: Alcohol, Marijuana, Prescribed. Hx Substance Use Treatment: Yes ([facility]). - Substances abused. Alprazolam (Xanax). Substance route: Oral. Frequency: Daily. Amount used: 6 to 8 mg. Age of first use: 23. Date of last use: 06/01/19. Benzodiazepine (Klonopin). Substance route: Oral. Frequency: Daily. Amount used: 2 to 4 mg. Age of first use: 23. Date of last use: 05/27/19. Alcohol. Substance route: Oral. Frequency: 1-2 times per week. Amount used: fifth of vodka. Age of first use: 30. Date of last use: 06/01/19 Medical History: Lasik eye surgery Psychiatric History: Patient denies history of psychiatric hospitalization and suicide attempt. Patient's first psychiatric contact was in [facility] due to difficulty focusing and was diagnosed with ADHD and prescribed ritalin. Patient is currently provided with outpatient psychiatric care by Dr. Alvarez in [place] located in [facility]. States that he is prescribed Adderall 20mg daily, Ambien 10mg HS, Remeron 30mg HS + Gabapentin 300mg TID. Diagnosis of ADHD and Anxiety disorder. At present patient reports feeling anxious and is experiencing difficulty sleeping. Physical/Sexual Abuse/Trauma History: denies Mental Status Exam - Mental Status Exam Alert and Oriented to: Time, Place, Person Cognitive Function: Good Patient Appearance: Well Groomed Mood: Anxious Affect: Mood Congruent Patient Behavior: Cooperative Speech Pattern: Appropriate Voice Loudness: Normal Thought Process: Goal Oriented Thought Disorder: Not Present Hallucinations: Denies Suicidal Ideation: Denies Homicidal Ideation: Denies Insight/Judgement: Poor Sleep: Poorly Appetite: Fair Muscle strength/Tone: Normal Gait/Station: Normal Psychiatric Findings - Problem List ([place] 1, 2,3) (1) Sedative, hypnotic or anxiolytic dependence with withdrawal, uncomplicated Current Visit: Yes Status: Acute (2) Alcohol dependence Current Visit: Yes Status: Acute Qualifiers: Complication of substance-induced condition: uncomplicated (3) ADHD (attention deficit hyperactivity disorder) Current Visit: No Status: Chronic (4) Opioid dependence Current Visit: Yes Status: Acute (5) Substance induced mood disorder Current Visit: Yes Status: Acute (6) Substance-induced sleep disorder Current Visit: Yes Status: Acute (7) Anxiety disorder Current Visit: Yes Status: Chronic - Initial Treatment Plan Initial Treatment Plan: Psychoeducation provided. Detoxification in progress. Will order Remeron 30mg HS + Gabapentin 300mg TID + Belsomra 10mg HS. Benefits and side effects discussed. Verbal consent given.
[2019-06-03] MEDS ORDERED: NICOTINE 21 MG/24 HOURS TOPICAL PATCH TD SCH (10:00)
[2019-06-03 10:26] LABS: HEMATOCRIT 38.5 % (35.4-49); HEMOGLOBIN 12.9 GM/dL (11.7-16.9); MCH 27.4 pg (25.7-33.7); MCHC 33.5 g/dl (32.0-35.9); MEAN CELL VOLUME 81.8 fl (80-96); MEAN PLT VOLUME 9.4 fl (7.5-11.1); PLATELET COUNT 249 K/MM3 (134-434); RDW 17.9 % (11.9-15.9); WHITE BLOOD COUNT 4.4 K/mm3 (4.0-10.0)
--- NOTE | 2019-06-03 10:33 | PN ---
[facility] CIWA - CIWA Score Nausea/Vomitin-No Nausea/No Vomiting Muscle Tremors: 1-None Visible, but [place] Anxiety: 5 Agitation: 6 Paroxysmal Sweats: 1-Minimal Palms Moist Orientation: 0-Oriented Tacttile Disturbances: 0-None Auditory Disturbances: 0-None Visual Disturbances: 0-None Headache: 0-None Present CIWA-Ar Total Score: 13 [facility] Progress Note (SOAP) Subjective: Patient is a 39 yo male with hx of benzo dependence on Valium detox protocol Objective: 06/03/19 10:33 Vital Signs Temperature 97.3 F L 06/03/19 09:28 Pulse Rate 66 06/03/19 09:28 Respiratory Rate 18 06/03/19 09:28 Blood Pressure 127/81 06/03/19 09:28 O2 Sat by Pulse Oximetry (%) Laboratory Last Values WBC 4.4 K/mm3 (4.0-10.0) 06/03/19 08:00 RBC 4.70 M/mm3 (4.00-5.60) 06/03/19 08:00 Hgb 12.9 GM/dL (11.7-16.9) 06/03/19 08:00 Hct 38.5 % (35.4-49) 06/03/19 08:00 MCV 81.8 fl (80-96) 06/03/19 08:00 MCH 27.4 pg (25.7-33.7) 06/03/19 08:00 MCHC 33.5 g/dl (32.0-35.9) 06/03/19 08:00 RDW 17.9 % (11.9-15.9) H 06/03/19 08:00 Plt Count 249 K/MM3 (134-434) 06/03/19 08:00 MPV 9.4 fl (7.5-11.1) D 06/03/19 08:00 labs reviewed CMP pending Assessment: 06/03/19 10:34 Patient is Aox3 no acute distress EENT WNL Full ROM pacing in the unit patient anxious, disruptive in the unit, ceases in several occasions to follow directions and unit rules, patient is frequently redirected d/t behavior. Patient will ask the nurse for medications contact, refuse and later state that the staff is refusing to give him his mediations. Patient is very impulsive. Frequently states he will like to leave the unit and does not wish to be here. Patient was redirected in several occasions in which unit rules reinforced. withdrawal sx 06/03/19 10:45 Plan: Nursing piping supervisor and counselor and counseling piping supervisor made aware of patients behavior and is to be place on behavioral contract increase fluids continue detox continue to monitor
[2019-06-03] MEDS: PRENATAL VITAMINS W/ FOLIC ACID TABLET (FP) PO SCH (10:39)
[2019-06-03] MEDS: BUPRENORPHINE/NALOXONE 8 MG/2 MG FILM PACKET SL SCH (10:40)
[2019-06-03] MEDS: diazePAM 5 MG TABLET PO PRN ×2 (11:20→17:14)
[2019-06-03 11:38] LABS: ALBUMIN 4.2 g/dl (3.4-5.0); BILIRUBIN,TOTAL 0.3 mg/dL (0.2-1); BLOOD UREA NITROGEN 18.3 mg/dL (7-18); CALCIUM 9.5 mg/dL (8.5-10.1); CREATININE 0.8 mg/dL (0.55-1.3); POTASSIUM 4.7 mmol/L (3.5-5.1); TOT PROT 7.3 g/dl (6.4-8.2)
[2019-06-03] MEDS: GABAPENTIN 300 MG CAPSULE PO SCH ×2 (13:31→22:06)
[2019-06-03] MEDS: NICOTINE 21 MG/24 HOURS TOPICAL PATCH TD PRN (13:32)
--- NOTE | 2019-06-03 15:15 | EKG ---
Test Reason : Blood Pressure : / mmHG Vent. Rate : 051 BPM Atrial Rate : 051 BPM P-R Int : 152 ms QRS Dur : 100 ms QT Int : 418 ms P-R-T Axes : 052 079 056 degrees QTc Int : 385 ms SINUS BRADYCARDIA WITH SINUS ARRHYTHMIA MINIMAL VOLTAGE CRITERIA FOR LVH, MAY BE NORMAL VARIANT BORDERLINE ECG WHEN COMPARED WITH ECG OF 01-JUN-2017 18:58, VENT. RATE HAS DECREASED BY 32 BPM T WAVE AMPLITUDE HAS INCREASED IN LATERAL LEADS Confirmed by SAMI CHARLES MD ([id number]) on 06/03/2019 3:14:47 PM Referred By: Confirmed By:SAMI CHARLES MD
[2019-06-03] MEDS: MAGNESIUM HYDROX 2400MG/30ML ORAL SUSPENSION 30 ML CUP PO PRN (17:18)
[2019-06-03] MEDS ORDERED: MIRTAZAPINE 15 MG TABLET (FP) PO SCH (22:00)
[2019-06-03] MEDS ORDERED: SUVOREXANT 10 MG TABLET PO PRN (22:00)
[2019-06-03] MEDS: THIAMINE HCL 100 MG TABLET (FP) PO SCH (22:06)
[2019-06-04] MEDS ORDERED: diazePAM 5 MG TABLET PO SCH (06:00)
[2019-06-04] MEDS: GABAPENTIN 300 MG CAPSULE PO SCH (07:24)
[2019-06-04] MEDS: diazePAM 5 MG TABLET PO PRN ×2 (07:25→11:55)
[2019-06-04] MEDS: BUPRENORPHINE/NALOXONE 8 MG/2 MG FILM PACKET SL SCH (10:20)
[2019-06-04] MEDS: PRENATAL VITAMINS W/ FOLIC ACID TABLET (FP) PO SCH (10:20)
[2019-06-04] MEDS: NICOTINE 21 MG/24 HOURS TOPICAL PATCH TD PRN (10:34)
[2019-06-04] MEDS: MAGNESIUM HYDROX 2400MG/30ML ORAL SUSPENSION 30 ML CUP PO PRN (11:57)
--- NOTE | 2019-06-04 12:08 | DS ---
[facility] Detox Discharge Summary Admission Date: 06/02/19 Discharge Date: 06/04/19 - History Present History: Alcohol Dependence Additional Comments: Patient is a 39 yo male with hx of benzo dependence on Valium detox protocol on MAT bup linked to [facility]. Patient denies hx of seizures. Patient reports improvement in withdrawal symptoms and behavior on the unit. Patient tolerated detox well without adverse events. Patient to follow up with primary care provider and return to out patient [facility]. If worsening symptoms are present patient to seek medical attention or call 911. - Physical Exam Results Vital Signs: Vital Signs Temperature 97 F L 06/04/19 09:12 Pulse Rate 71 06/04/19 09:12 Respiratory Rate 18 06/04/19 09:12 Blood Pressure 119/69 06/04/19 09:12 O2 Sat by Pulse Oximetry (%) Pertinent Admission Physical Exam Findings: Vital Signs Temperature 96.5 F L 06/04/19 13:36 Pulse Rate 67 06/04/19 13:36 Respiratory Rate 18 06/04/19 13:36 Blood Pressure 128/79 06/04/19 13:36 O2 Sat by Pulse Oximetry (%) Laboratory Last Values WBC 4.4 K/mm3 (4.0-10.0) 06/03/19 08:00 RBC 4.70 M/mm3 (4.00-5.60) 06/03/19 08:00 Hgb 12.9 GM/dL (11.7-16.9) 06/03/19 08:00 Hct 38.5 % (35.4-49) 06/03/19 08:00 MCV 81.8 fl (80-96) 06/03/19 08:00 MCH 27.4 pg (25.7-33.7) 06/03/19 08:00 MCHC 33.5 g/dl (32.0-35.9) 06/03/19 08:00 RDW 17.9 % (11.9-15.9) H 06/03/19 08:00 Plt Count 249 K/MM3 (134-434) 06/03/19 08:00 MPV 9.4 fl (7.5-11.1) D 06/03/19 08:00 Sodium 140 mmol/L (136-145) 06/03/19 08:00 Potassium 4.7 mmol/L (3.5-5.1) 06/03/19 08:00 Chloride 105 mmol/L (98-107) 06/03/19 08:00 Carbon Dioxide 29 mmol/L (21-32) 06/03/19 08:00 Anion Gap 5 MMOL/L (8-16) L 06/03/19 08:00 BUN 18.3 mg/dL (7-18) H 06/03/19 08:00 Creatinine 0.8 mg/dL (0.55-1.3) 06/03/19 08:00 Est GFR (CKD-EPI)AfAm 132.27 06/03/19 08:00 Est GFR (CKD-EPI)NonAf 114.12 06/03/19 08:00 Random Glucose 94 mg/dL (74-106) 06/03/19 08:00 Calcium 9.5 mg/dL (8.5-10.1) 06/03/19 08:00 Total Bilirubin 0.3 mg/dL (0.2-1) 06/03/19 08:00 AST 20 U/L (15-37) 06/03/19 08:00 ALT 24 U/L (13-61) 06/03/19 08:00 Alkaline Phosphatase 56 U/L (45-117) 06/03/19 08:00 Total Protein 7.3 g/dl (6.4-8.2) 06/03/19 08:00 Albumin 4.2 g/dl (3.4-5.0) 06/03/19 08:00 RPR Titer Nonreactive (NONREACTIVE) 06/03/19 08:00 HIV 1&2 Antibody Screen Negative 06/03/19 08:00 HIV P24 Antigen Negative 06/03/19 08:00 Patient Aox3 no acute distress Denies SI/HI EENT WNL No adventitious breath sounds full ROM no gait disturbance - Treatment Hospital Course: Detox Protocol Followed, Detoxed Safely, Responded well, Discharged Condition Good, Rehab Referral Accepted Patient has Accepted a Rehab Referral to: [facility] - Outpatient - Medication Discharge Medications: Ambulatory Orders Amphet Asp/Amphet/D-Amphet [Adderall 20 mg Tablet] 20 mg PO DAILY 10/06/14 Buprenorp-Nalox 8-2 mg Sl Film 1 film PO DAILY 06/02/19 Gabapentin [Neurontin] 100 mg PO TID 06/02/19 Zolpidem Tartrate [Ambien] 1 tablet PO HS PRN 06/02/19 - Diagnosis (1) Benzodiazepine dependence Status: Acute (2) Substance induced mood disorder Status: Acute (3) Opioid dependence on agonist therapy Status: Chronic - AMA Did Patient Leave Against Medical Advice: No
[2019-06-04 13:36] VITALS: BP 128/79; PULSE 67; TEMP 96.5
--- NOTE | 2019-06-04 22:28 | PN ---
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 Patient requested earlu discharge as he wishes to return to his out patient program at [facility] and will be stay with his mother. Objective: 06/04/19 22:25 Vital Signs Period Temp Pulse Resp BP Sys/Amato Pulse Ox Last 24 Hr 96.5 F-97.3 F 53-71 18-18 119-128/60-79 Laboratory Last Values WBC 4.4 K/mm3 (4.0-10.0) 06/03/19 08:00 RBC 4.70 M/mm3 (4.00-5.60) 06/03/19 08:00 Hgb 12.9 GM/dL (11.7-16.9) 06/03/19 08:00 Hct 38.5 % (35.4-49) 06/03/19 08:00 MCV 81.8 fl (80-96) 06/03/19 08:00 MCH 27.4 pg (25.7-33.7) 06/03/19 08:00 MCHC 33.5 g/dl (32.0-35.9) 06/03/19 08:00 RDW 17.9 % (11.9-15.9) H 06/03/19 08:00 Plt Count 249 K/MM3 (134-434) 06/03/19 08:00 MPV 9.4 fl (7.5-11.1) D 06/03/19 08:00 Sodium 140 mmol/L (136-145) 06/03/19 08:00 Potassium 4.7 mmol/L (3.5-5.1) 06/03/19 08:00 Chloride 105 mmol/L (98-107) 06/03/19 08:00 Carbon Dioxide 29 mmol/L (21-32) 06/03/19 08:00 Anion Gap 5 MMOL/L (8-16) L 06/03/19 08:00 BUN 18.3 mg/dL (7-18) H 06/03/19 08:00 Creatinine 0.8 mg/dL (0.55-1.3) 06/03/19 08:00 Est GFR (CKD-EPI)AfAm 132.27 06/03/19 08:00 Est GFR (CKD-EPI)NonAf 114.12 06/03/19 08:00 Random Glucose 94 mg/dL (74-106) 06/03/19 08:00 Calcium 9.5 mg/dL (8.5-10.1) 06/03/19 08:00 Total Bilirubin 0.3 mg/dL (0.2-1) 06/03/19 08:00 AST 20 U/L (15-37) 06/03/19 08:00 ALT 24 U/L (13-61) 06/03/19 08:00 Alkaline Phosphatase 56 U/L (45-117) 06/03/19 08:00 Total Protein 7.3 g/dl (6.4-8.2) 06/03/19 08:00 Albumin 4.2 g/dl (3.4-5.0) 06/03/19 08:00 RPR Titer Nonreactive (NONREACTIVE) 06/03/19 08:00 HIV 1&2 Antibody Screen Negative 06/03/19 08:00 HIV P24 Antigen Negative 06/03/19 08:00 Assessment: 06/04/19 22:28 Patient Aox3 no acute distress EENT WNL Full ROM no gait disturbance Plan: will reassess patient around noon for withdrawal sx increase fluids continue to monitor
[2019-06-05] MEDS ORDERED: diazePAM 5 MG TABLET PO ONE (06:00)
== END 2019-06-04 12:30 | disposition home or self-care (01) | DRG 773 ==
LOC: YASAS 15:50 → Y3N 19:15
PROVIDERS: ADMIT Allergy & Immunology; ATTEND Allergy & Immunology
PROC: HZ2ZZZZ Detoxification Services for Substance Abuse Treatment (ICD-10-PCS; principal; 2019-06-02)
DX: F13.230 Sedative, hypnotic or anxiolytic dependence with withdrawal, uncomplicated (principal); F10.20 Alcohol dependence, uncomplicated; F11.20 Opioid dependence, uncomplicated; F17.210 Nicotine dependence, cigarettes, uncomplicated; F19.282 Other psychoactive substance dependence with psychoactive substance-induced sleep disorder; F19.24 Other psychoactive substance dependence with psychoactive substance-induced mood disorder; F90.9 Attention-deficit hyperactivity disorder, unspecified type; F41.9 Anxiety disorder, unspecified
CPT/HCPCS: 36415; 80053; 85027; 86593; 87389; 93005; 93010